=== PATIENT | male | born 1940 | race Caucasian/White ===

== ENCOUNTER → 2016-08-19 | Outpatient (CLI) | payer OTHER ==
--- NOTE | 2016-08-19 10:25 | DX ---
Right shoulder, 4 views. HISTORY: Follow-up right shoulder arthroplasty. COMPARISON STUDY: February 12, 2016. FINDINGS: Surgical features of a right total shoulder arthroplasty are again identified, without hard jarrell complication. The humeral component of the prosthesis is well seated. No fracture or dislocation . IMPRESSION: 1. Status post right total shoulder arthroplasty without hardware complication.
== END ==
LOC: BMCIMAGING 08:57
PROVIDERS: ATTEND Orthopaedic Surgery
DX: Z09 Encounter for follow-up examination after completed treatment for conditions other than malignant neoplasm (principal); Z96.611 Presence of right artificial shoulder joint

== ENCOUNTER 2016-09-20 18:36 | Observation (INO) | payer OTHER ==
--- NOTE | 2016-09-20 18:54 | EDPHY ---
HPI/HX/ROS/PE/MDM Narrative: CHIEF COMPLAINT: Dizziness, diaphoresis. HPI: The patient is a 76-year-old male who presents via private vehicle with family. An hour ago he was walking up the stairs when he felt a strong urge to defecate. He had a large bowel movement and immediately became diaphoretic and dizzy. His family notes he was very pale. He denies preceding factors. No chest pain, shortness of breath, syncope, or other complaints. He felt mildly better after he rested in bed and took an Aspirin. He still feels unwell. He had normal blood sugar levels. He did not drink much water today. He had a normal treadmill stress test a year ago. REVIEW OF SYSTEMS: Aside from elements discussed in the HPI, a comprehensive 10-point review of systems was reviewed and is negative. PMH: L5/S1 and L3/L4 fusion, orthopedic surgery, prostate cancer, diabetes, inguinal hernia, shoulder replacement. SOCIAL HISTORY: . PHYSICAL EXAM: General:Patient is alert, in no acute distress. ENT:Eyes are normal to inspection. ENT inspection normal. Neck: Normal inspection. Full range of motion. Respiratory:No respiratory distress. Breath sounds normal bilaterally. Cardiovascular: Regular rate and rhythm. Strong peripheral pulses. Normal cap refill. Abdomen:The abdomen is nontender to palpation. There are no peritoneal signs. There are normal bowel sounds. Back: Normal to inspection. No tenderness to palpation. Skin: Normal color. No rash. Warm and dry. Extremities: Normal appearance. Full range of motion. Neuro: Oriented x3. Normal motor function. Normal sensory function. ED Course: EKG and chest x-ray obtained. An IV was established and labs ordered. 1L IV saline administered for hydration. Patient's chemistry and CBC are unremarkable. The 12 lead EKG was interpreted by myself. See hard copy and/or "tracemaster" electronic copy for interpretation. Study: PA and Lateral Chest X-ray Indication: Dizziness, diaphoresis. Results: I viewed the images myself on the PACS system. The radiologist interpretation per Dr. Stone is: Clear lungs. No acute process. 2019: Consulted with Dr. Betancourt, hospitalist. He accepts admission. MDM: This is a 76-year-old male who presents with an episode of near syncope. His describes severe pallor and diaphoresis which is obviously concerning for possible cardiac event. His main risk factor is insulin-dependent diabetes. He does not endorse a history of heart disease. His workup in the emergency department is thankfully negative, including EKG, troponin and chest x-ray. On re-evaluation, he is asymptomatic and his vital signs are normal. I had extensive discussion with him and he is comfortable with the plan to be admitted for observation and telemetry monitoring as well as serial troponins. - Data Points Laboratory Results: Laboratory Results 09/20/16 19:08 09/20/16 19:08 09/20/16 09/20/16 19:08 19:08 WBC 8.43 10^3/uL 10^3/uL (3.80-9.50) RBC 5.35 10^6/uL 10^6/uL (4.40-6.38) Hgb 16.5 g/dL g/dL (13.7-17.5) Hct 48.6 % % (40.0-51.0) MCV 90.8 fL fL (81.5-99.8) MCH 30.8 pg pg (27.9-34.1) MCHC 34.0 g/dL g/dL (32.4-36.7) RDW 12.2 % % (11.5-15.2) Plt Count 245 10^3/uL 10^3/uL (150-400) MPV 11.0 fL fL (8.7-11.7) Neut % (Auto) 71.6 % % (39.3-74.2) Lymph % (Auto) 17.0 % % (15.0-45.0) Starr % (Auto) 7.7 % % (4.5-13.0) Eos % (Auto) 2.5 % % (0.6-7.6) Baso % (Auto) 0.8 % % (0.3-1.7) Nucleat RBC Rel Count 0.0 % % (0.0-0.2) Absolute Neuts (auto) 6.04 10^3/uL 10^3/uL (1.70-6.50) Absolute Lymphs (auto) 1.43 10^3/uL 10^3/uL (1.00-3.00) Absolute Monos (auto) 0.65 10^3/uL 10^3/uL (0.30-0.80) Absolute Eos (auto) 0.21 10^3/uL 10^3/uL (0.03-0.40) Absolute Basos (auto) 0.07 10^3/uL 10^3/uL (0.02-0.10) Absolute Nucleated RBC 0.00 10^3/uL 10^3/uL (0-0.01) Immature Gran % 0.4 % % (0.0-1.1) Immature Gran # 0.03 10^3/uL 10^3/uL (0.00-0.10) Sodium 136 mEq/L mEq/L (134-144) Potassium 4.5 mEq/L mEq/L (3.5-5.2) Chloride 103 mEq/L mEq/L (97-110) Carbon Dioxide 20 mEq/l L mEq/l (22-31) Anion Gap 13 mEq/L mEq/L (8-16) BUN 15 mg/dL mg/dL (7-23) Creatinine 0.8 mg/dL mg/dL (0.7-1.3) Estimated GFR > 60 Glucose 194 mg/dL H mg/dL (70-100) Calcium 9.6 mg/dL mg/dL (8.5-10.4) Troponin I < 0.012 ng/mL ng/mL (0-0.034) Medications Given: Discontinued Medications Sodium Chloride (Ns) 1,000 mls @ 0 mls/hr IV ONCE ONE PRN Reason: Wide Open Stop: 09/20/16 19:20 Last Admin: 09/20/16 19:41 Dose: 1,000 mls General Time Seen by Provider: 09/20/16 18:52 Initial Vital Signs: Initial Vital Signs Temperature (C) 36.4 C 09/20/16 18:40 Heart Rate 83 09/20/16 18:40 Respiratory Rate 18 09/20/16 18:40 Blood Pressure 123/72 H 09/20/16 18:40 O2 Sat (%) 98 09/20/16 18:40 O2 Delivery Mode Room Air Allergies/Adverse Reactions: No Allergies [NKDA] Allergy (Verified 09/20/16 18:44) HAYFEVER Allergy (Mild, Uncoded 12/20/09 15:40) Home Medications: Medication Instructions Recorded Aspirin EC [Aspirin EC 81 mg (*)] 81 mg PO DAILY 12/28/15 Insulin Aspart [Novolog Flexpen] 8 - 9 unit SQ DAILY@1700 07/29/15 Insulin Glargine [Lantus 100 18 units SC HS 07/29/15 UNITS/ML (*)] Metformin HCl [Metformin HCl ER] 1,000 mg PO BID 07/29/15 Rosuvastatin Calcium [Crestor] 10 mg PO DAILY@18 07/29/15 Departure - Departure Disposition: [facility] Inpatient Acute Clinical Impression: Near syncope Condition: Fair Report Scribed for: Anurag Ford Report Scribed by: Fausto Snowden Date of Report: 09/20/16 Time of Report: 18:53 Physician Review and Approval Statement: Portions of this note were transcribed by a medical associate. I personally performed a history, physical exam, medical decision making, and confirmed accuracy of information the transcribed note.
--- NOTE | 2016-09-20 19:03 | CPEKG ---
Heart Rate: 88 RR Interval: 682 P-R Interval: 184 QRSD Interval: 96 QT Interval: 384 QTC Interval: 465 P [place]: 39 QRS [place]: 15 T Wave [place]: -7 EKG Severity - ABNORMAL ECG - EKG Impression: SINUS RHYTHM EKG Impression: T ABNORMALITIES, INFERIOR LEADS ,[place] Electronically Signed By: Dread Rahman 21-Sep-2016 09:41:17
[2016-09-20] MEDS ORDERED: NS 1,000 ML IV ONE (19:19)
[2016-09-20 19:30] LABS: % IMMATURE GRANULYOCYTES 0.4 % (0.0-1.1); ABSOLUTE IMMATURE GRANULOCYTES 0.03 10^3/uL (0.00-0.10); ADD DIFF? NO; ADD MORPH? NO; ADD SCAN? NO; ATYPICAL LYMPHOCYTE FLAG 0 (0-99); FRAGMENT RBC FLAG 0 (0-99); HEMATOCRIT 48.6 % (40.0-51.0); HEMOGLOBIN 16.5 g/dL (13.7-17.5); LEFT SHIFT FLG 0 (0-99); LIPEMIA HEMOLYSIS FLAG 90 (0-99); MEAN CELL HEMOGLOBIN 30.8 pg (27.9-34.1); MEAN CELL VOLUME 90.8 fL (81.5-99.8); PLATELET CLUMPS FLAG 10 (0-99); PLATELET COUNT 245 10^3/uL (150-400); RED BLOOD CELL COUNT 5.35 10^6/uL (4.40-6.38); RED CELL DISTRIBUTION WIDTH 12.2 % (11.5-15.2)
[2016-09-20 19:44] LABS: ANION GAP 13 mEq/L (8-16); CALCIUM 9.6 mg/dL (8.5-10.4); CARBON DIOXIDE 20 mEq/l (22-31); CHLORIDE 103 mEq/L (97-110); CREATININE 0.8 mg/dL (0.7-1.3); GLOMERULAR FILTRATION RATE > 60; GLUCOSE 194 mg/dL (70-100); POTASSIUM 4.5 mEq/L (3.5-5.2); SODIUM 136 mEq/L (134-144)
[2016-09-20 19:56] LABS: TROPONIN I < 0.012 ng/mL (0-0.034)
--- NOTE | 2016-09-20 21:10 | PDGENHP ---
History and Physical - Chief Complaint near syncope - History of Present Illness 76 M with a history of hyperlipidemia and type 2 DM presents with near syncope. Patient reports that at 1800 tonight, while walking up stairs he had the sudden urge to defecate. While having a significant bowel movement, he became diaphoretic, dizzy, and pale. He did not pass out, and he did not experience chest pain, dyspnea, palpitations, nausea or vomiting. His symptoms subsided with bed rest and ASA, though he still felt unwell, and he was brought into the ED by his . He also reports an upset stomach today, as well as decreased fluid intake. He had a treadmill test one year ago before surgery, but does not remember if he had an echo at this time. Denies any history of lightheadedness, palpitations, dyspnea on exertion, orthopnea or leg swelling. He received 1 L NS in the ED and is feeling better. History Information - Allergies/Home Medication List Allergies/Adverse Reactions: No Allergies [NKDA] Allergy (Verified 09/20/16 18:44) HAYFEVER Allergy (Mild, Uncoded 12/20/09 15:40) Home Medications: Aspirin EC [Aspirin EC 81 mg (*)] 81 mg PO DAILY 07/29/15 [Last Taken 09/20/16 08:00] Insulin Aspart [Novolog Flexpen] 10 unit SQ DAILY@1700 07/29/15 [Last Taken ] Insulin Glargine [Lantus 100 UNITS/ML (*)] 18 units SC HS 07/29/15 [Last Taken 09/19/16] Metformin HCl [Metformin HCl ER] 1,000 mg PO BID 07/29/15 [Last Taken 09/20/16 08:00] Rosuvastatin Calcium [Crestor] 10 mg PO DAILY@18 07/29/15 [Last Taken 09/19/16] Insulin Aspart [Novolog Flexpen] 6 unit SQ DAILY@12 09/20/16 [Last Taken ] I have personally reviewed and updated: family history, medical history, social history, surgical history Past Medical History: DM Type 2, Lumbar disk disease, HLD, prostate CA - Surgical History Additional surgical history: Lumbar laminectomy, right total shoulder, fusion L3 /4, L5/S1, B/L inguinal hernias, prostatectomy - Family History Additional family history: - Social History Smoking Status: Never smoked Alcohol Use: Occasionally Additional social history: and lives in [place] with his Review of Systems ROS: 10pt was reviewed & negative except for what was stated in HPI & below Physical Exam Temp Pulse Resp BP Pulse Ox 36.5 C 80 16 124/77 H 95 09/20/16 20:40 09/20/16 20:40 09/20/16 20:40 09/20/16 20:40 09/20/16 20:40 Constitutional: no apparent distress, appears nourished, not in pain Eyes: PERRL, anicteric sclera, EOMI Ears, Nose, Mouth, Throat: moist mucous membranes, hearing normal, ears appear normal, no oral mucosal ulcers Cardiovascular: regular rate and rhythym, systolic murmur (rusb), edema, No JVD Respiratory: no respiratory distress, no rales or rhonchi, clear to auscultation Gastrointestinal: normoactive bowel sounds, soft, non-tender abdomen, no palpable masses Genitourinary: no bladder fullness, no bladder tenderness Skin: warm, normal color, no rashes or abrasions, no fluctuance, no induration, No mottled Musculoskeletal: full muscle strength, no muscle tenderness, normal joint ROM, no joint effusions Neurologic: AAOx3, CN II-XII Intact, No facial droop Psychiatric: interacting appropriately, not anxious, not encephalopathic, thought process linear Lab Data & Imaging Review 09/20/16 19:08 09/20/16 19:08 WBC 8.43 10^3/uL (3.80-9.50) 09/20/16 19:08 RBC 5.35 10^6/uL (4.40-6.38) 09/20/16 19:08 Hgb 16.5 g/dL (13.7-17.5) 09/20/16 19:08 Hct 48.6 % (40.0-51.0) 09/20/16 19:08 MCV 90.8 fL (81.5-99.8) 09/20/16 19:08 MCH 30.8 pg (27.9-34.1) 09/20/16 19:08 MCHC 34.0 g/dL (32.4-36.7) 09/20/16 19:08 RDW 12.2 % (11.5-15.2) 09/20/16 19:08 Plt Count 245 10^3/uL (150-400) 09/20/16 19:08 MPV 11.0 fL (8.7-11.7) 09/20/16 19:08 Neut % (Auto) 71.6 % (39.3-74.2) 09/20/16 19:08 Lymph % (Auto) 17.0 % (15.0-45.0) 09/20/16 19:08 Lane % (Auto) 7.7 % (4.5-13.0) 09/20/16 19:08 Eos % (Auto) 2.5 % (0.6-7.6) 09/20/16 19:08 Baso % (Auto) 0.8 % (0.3-1.7) 09/20/16 19:08 Nucleat RBC Rel Count 0.0 % (0.0-0.2) 09/20/16 19:08 Absolute Neuts (auto) 6.04 10^3/uL (1.70-6.50) 09/20/16 19:08 Absolute Lymphs (auto) 1.43 10^3/uL (1.00-3.00) 09/20/16 19:08 Absolute Monos (auto) 0.65 10^3/uL (0.30-0.80) 09/20/16 19:08 Absolute Eos (auto) 0.21 10^3/uL (0.03-0.40) 09/20/16 19:08 Absolute Basos (auto) 0.07 10^3/uL (0.02-0.10) 09/20/16 19:08 Absolute Nucleated RBC 0.00 10^3/uL (0-0.01) 09/20/16 19: Immature Gran % 0.4 % (0.0-1.1) 09/20/16 19: Immature Gran # 0.03 10^3/uL (0.00-0.10) 09/20/16 19:08 Sodium 136 mEq/L (134-144) 09/20/16 19:08 Potassium 4.5 mEq/L (3.5-5.2) 09/20/16 19:08 Chloride 103 mEq/L (97-110) 09/20/16 19:08 Carbon Dioxide 20 mEq/l (22-31) L 09/20/16 19:08 Anion Gap 13 mEq/L (8-16) 09/20/16 19:08 BUN 15 mg/dL (7-23) 09/20/16 19:08 Creatinine 0.8 mg/dL (0.7-1.3) 09/20/16 19:08 Estimated GFR > 60 09/20/16 19:08 Glucose 194 mg/dL (70-100) H 09/20/16 19:08 Calcium 9.6 mg/dL (8.5-10.4) 09/20/16 19:08 Troponin I < 0.012 ng/mL (0-0.034) 09/20/16 19:08 Visualized and Interpreted Chest x-ray results: Yes Chest X-Ray results: no infiltrate, normal Visualized and Interpreted EKG results: Yes EKG Interpretation: Positive for: normal sinsus rhythm (hr 88), T waves inversion (II avf) Assessment & Plan Assessment: 76M with history of HLD and DM Type 2 presents with near syncope during a bowel movement # near syncope - likely vasovagal 2/2 BM, other possibilities include orthostasis, carotid sensitivity, arrhythmia or structural heart disease Continue cardiac monitoring Trend second troponin in 6 hours # heart murmur TTE to evaluate for severe aortic stenosis # Type II DM, insulin dependent Moderate control, continue home regimen # hyperlipidemia Last laps from 07/2015, draw FLP # dispo - monitor in EACU
[2016-09-21] MEDS ORDERED: metFORMIN SR 500 MG TAB PO SCH (08:00)
[2016-09-21 08:41] VITALS: O2SAT 96
[2016-09-21] MEDS ORDERED: PROMETHAZINE HCL 25 MG/ML INJ IVP PRN (08:51)
--- NOTE | 2016-09-21 08:56 | HOSPPROG ---
Hospitalist Progress Note Assessment/Plan: #Presyncope: suspect vasovagal with BM and dehydration. Evaluating for given murmur. TTE pending. EKG/troponin negative for ischemia #Controlled DM: metformin #HLD: statin #DVT: ambulatory #Disp: DC today if normal TTE Subjective: no cp, sob Objective: Vital Signs Temp Pulse Resp BP Pulse Ox 36.5 C 77 13 124/86 H 96 09/21/16 08:00 09/21/16 08:00 09/21/16 08:00 09/21/16 08:00 09/21/16 08:00 09/20/16 09/21/16 09/22/16 05:59 05:59 05:59 Intake Total 1000 Balance 1000 - Physical Exam Constitutional: no apparent distress Eyes: PERRL, anicteric sclera Ears, Nose, Mouth, Throat: moist mucous membranes, hearing normal Cardiovascular: regular rate and rhythym, systolic murmur (2/6 best heard at RUSB) Respiratory: no respiratory distress, no rales or rhonchi Gastrointestinal: normoactive bowel sounds, soft, non-tender abdomen Genitourinary: no bladder fullness Skin: warm Musculoskeletal: full muscle strength Neurologic: AAOx3, CN II-XII Intact ICD10 Worksheet Patient Problems: Problems Problem Status Onset Arthrodesis status Acute Lumbar radiculitis Acute Lumbar stenosis Acute Near syncope Acute
[2016-09-21] MEDS ORDERED: ASPIRIN EC 81 MG TAB PO SCH (09:00)
[2016-09-21] MEDS ORDERED: NON-FORMULARY NEW DRUG (Metformin Hcl [Metformin Hcl Er] 1,000 MG) PO SCH (09:00)
[2016-09-21] MEDS ORDERED: INSULIN ASPART 6 UNIT SQ SCH (12:00)
--- NOTE | 2016-09-21 12:07 | ECHO ---
[id number] + + [address] : : [place] [address] : : [phone] + Adult Echocardiographic Report + -----+ :Name: DIMPLE LUTZ WStudy Date: 09/21/2016 07:59 AM : : Hospital Admission Number: [id number] Location : 142: :: 1940 Gender: Male Height: 73 in : :Age: 76 yrs Race: WH Weight: 220 lb : :Reason For Study: Systolic murmur RUSB presenting with near : :syncope BSA: 2.2 meters2 : :History: No previous : + -----+ MMode/2D Measurements \T\ Calculations IVSd: 1.2 cm RVDd: 2.6 cm FS: 35.4 % LVOT diam: 1.9 cm LVPWd: 1.1 cm LVIDd: 3.6 cm EDV(Teich): LVOT area: LVIDs: 2.3 cm 55.9 ml ESV(Teich): 2.8 cm2 19.1 ml EF(Teich): 65.8 % LVLd ap4: 8.7 cm CO(MOD-sp4): EDV(MOD-sp4): 2.9 l/min 72.0 ml SV(MOD-sp4): 45.0 ml LVLs ap4: 7.5 cm ESV(MOD-sp4): 27.0 ml EF(MOD-sp4): 62.5 % Normal Measurement Values: + + :LVIDd (3.5-5.7cm) IVSd (0.6-1.1cm) LVPWd (0.6-1.1cm) Aortic Root (2.0-3.7cm)Left Atrium (1.5-4.0cm): :LV Vol(d) (76-115ml) LV Vol(s) (29-48ml) Ejec Fraction (50-65%)PV Edward (0.6- 1.2m/s) TV Edward (0.4-1.0m/s) : :MV E Edward (0.8-1.0m/s)MV A Edward (0.3-1.0m/s)LVOT Edward (0.7-1.2m/s) Asc Ao Edward ( 0.9-1.8m/s) : + + Time Measurements MM R-R int: 0.92 sec MM HR: 65.0 BPM Doppler Measurements \T\ Calculations MV E max edward: MV V2 max: Ao V2 max: LV V1 max: 58.2 cm/sec 113.0 cm/sec 147.0 cm/sec 79.7 cm/sec MV A max edward: MV max PG: Ao max P.6 mmHgLV V1 max P.3 cm/sec 5.1 mmHg Ao mean P.5 mmHg MV E/A: 0.60 MV V2 mean: 4.0 mmHg LV V1 mean PG: MV dec time: 60.2 cm/sec Ao V2 mean: 1.0 mmHg 0.25 sec MV mean P.3 cm/sec LV V1 mean: 2.0 mmHg Ao V2 VTI: 28.6 cm 43.8 cm/sec MV V2 VTI: 20.9 cmAVA(I,D): 1.7 cm2 LV V1 VTI: MVA(VTI): 2.3 cm2 CEASAR(V,D): 1.5 cm2 17.2 cm SV(LVOT): 48.8 ml PA V2 max: PI end-d edward: RAP systole: 90.8 cm/sec 106.0 cm/sec 10.0 mmHg PA max P.3 mmHg Pulm Sys Edward: 46.3 cm/sec Pulm Casas Edward: 39.8 cm/sec Pulm A Revs Edward: 27.7 cm/sec Pulm A Revs Dur: 0.12 sec Pulm S/D: 1.2 Left Ventricle The left ventricle is normal in size and function. There is borderline concentric left ventricular hypertrophy. Ejection Fraction = 65%. There is Doppler evidence for diastolic dysfunction. Right Ventricle The right ventricle is normal in size and function. Atria The left atrial size is normal. Right atrial size is normal. The interatrial septum is intact with no evidence for an atrial septal defect. Mitral Valve The mitral valve is normal in structure and function. There is no mitral valve stenosis. There is trace mitral regurgitation. Tricuspid Valve The tricuspid valve is normal in structure and function. There is no tricuspid stenosis. No tricuspid regurgitation. Right ventricular systolic pressure is normal. Aortic Valve There is mild aortic valve calcification. There is no aortic stenosis. There is no aortic insufficiency. Pulmonic Valve The pulmonic valve is normal in structure and function. There is no pulmonic valvular stenosis. trace to mild pulmonic valvular regurgitation. Great Vessels The aortic root is normal size. Pericardium/Pleural There is a fat pad seen. There is no pericardial effusion. Conclusion A complete two-dimensional transthoracic echocardiogram was performed (2D, M-mode, Doppler and color flow Doppler). The left ventricle is normal in size and function. Ejection Fraction = 65%. There is Doppler evidence for diastolic dysfunction. There is trace mitral regurgitation. Right ventricular systolic pressure is normal. There is mild aortic valve calcification. trace to mild pulmonic valvular regurgitation. There is borderline concentric left ventricular hypertrophy. Final Reading Physician: Beka Valencia signed on 09/21/2016 12:06 PM Ordering Physician: Amauri Betancourt Performed By: Leola Cottrell
[2016-09-21 12:21] VITALS: BP 148/87; PULSE 80; RESP 16; TEMP 97.2
--- NOTE | 2016-09-21 14:35 | GDS ---
[f rep st] DISCHARGE SUMMARY DISCHARGE DIAGNOSES: 1. Presyncope, likely vasovagal. 2. Hyperlipidemia. 3. Controlled diabetes. 4. Heart murmur. HPI: Patient is a 76-year-old male with history of hyperlipidemia and type 2 diabetes, presenting with a near-syncopal episode. At 1800 night of admission, he was walking up the stairs and had a sudden urge to defecate. While having significant bowel movements, straining, he became diaphoretic, dizzy, and pale. He did not lose consciousness. He denies prodromal symptoms including chest pain, shortness of breath, palpitations, nausea or vomiting. His symptoms subsided with bedrest and aspirin, although he still felt unwell. Thus, he was brought to the emergency room by his . He also reports decreased fluid intake for several days. He has not had episodes like this in the past. HOSPITAL COURSE BY PROBLEM: 1. Presyncope: vasovagal in the setting of bearing down with significant bowel movement, as well as dehydration. EKGs and troponin negative for ischemia. Echocardiogram did not show significant valvular abnormalities and had a normal EF. Patient was encouraged to drink plenty of fluids. 2. Controlled diabetes type 2. Continue home medications. 3. Hyperlipidemia. Continue home medications. DISPOSITION: Patient is stable for discharge. FOLLOWUP: Follow up with his primary care physician. /[id number]/MODL [id number]
[2016-09-21] MEDS ORDERED: INSULIN ASPART 10 UNIT SQ SCH (17:00)
[2016-09-21] MEDS ORDERED: ROSUVASTATIN CALCIUM 10 MG TAB PO SCH (18:00)
[2016-09-21] MEDS ORDERED: INSULIN GLARGINE 100 UNITS/ML SYRINGE SC SCH (21:00)
== END 2016-09-21 13:12 | disposition home or self-care (01) ==
LOC: F1N 21:17
PROVIDERS: ADMIT Family Medicine; ATTEND Internal Medicine
DX: R55 Syncope and collapse (principal); E86.0 Dehydration; E78.5 Hyperlipidemia, unspecified; E11.9 Type 2 diabetes mellitus without complications; R01.1 Cardiac murmur, unspecified; Z98.1 Arthrodesis status; Z85.46 Personal history of malignant neoplasm of prostate; Z96.611 Presence of right artificial shoulder joint
CPT/HCPCS: 71020; 93005; 93306; G0378; J1815

== ENCOUNTER → 2016-10-30 | Outpatient (CLI) | payer OTHER | LOC: FIMAGING 10:01 | PROVIDERS: ATTEND Physician Assistant | DX: Z09 Encounter for follow-up examination after completed treatment for conditions other than malignant neoplasm (principal); I70.0 Atherosclerosis of aorta; Z98.1 Arthrodesis status ==

== ENCOUNTER → 2017-10-28 | Outpatient (CLI) | payer OTHER | LOC: FIMAGING 10:30 | PROVIDERS: ATTEND Neurological Surgery | DX: Z98.1 Arthrodesis status (principal) ==